=== PATIENT | male | born 1955 | race Caucasian/White ===

== ENCOUNTER 2018-01-09 13:01 | Outpatient (CLI) ==
--- NOTE | 2018-01-09 13:54 | US ---
Exam: Fabian-scale and color Doppler ultrasonographic evaluation of the left lower extremity venous st ructures. Comparison: None available. Reason for exam: Left leg swelling. FINDINGS: There is spontaneous flow with compression and augmentation in the left common femoral, gr eater saphenous, profunda, superficial femoral, popliteal, peroneal, posterior tibial, and anterior t ibial veins. No ultrasonographic evidence of thrombus is seen in the left lower extremity venous structures.
== END 2018-01-09 13:02 | disposition home or self-care (01) ==
LOC: RAD 13:01
PROVIDERS: ATTEND Nurse Practitioner
DX: M79.89 Other specified soft tissue disorders (principal)